=== PATIENT | female | born 1965 | race African-American/Black ===

== ENCOUNTER 2018-04-10 21:41 | Emergency (ER) | payer SELFPAY ==
[2018-04-10] MEDS ORDERED: Ketorolac Tromethamine 60 MG/2 ML VIAL ONE (23:00)
--- NOTE | 2018-04-10 23:06 | RAD ---
RIGHT SHOULDER THREE VIEWS: History: Fall. Right arm injury. FINDINGS: Acromioclavicular and glenohumeral alignment are maintained. Moderate osteophytosis. No acute fractur e, dislocation, or aggressive osseous erosions. IMPRESSION: Osteoarthritis right shoulder. No acute osseous abnormalities are demonstrated. POS: [facility]
== END 2018-04-10 23:46 | disposition home or self-care (01) ==
LOC: ERS 21:41
DX: M75.01 Adhesive capsulitis of right shoulder (principal); J45.909 Unspecified asthma, uncomplicated; I10 Essential (primary) hypertension; F41.9 Anxiety disorder, unspecified
CPT/HCPCS: 96372; J1885

== ENCOUNTER 2018-11-27 11:58 | Emergency (ER) | payer SELFPAY | END 2018-11-27 12:41 | disposition home or self-care (01) | LOC: ERS 11:58 | DX: J01.90 Acute sinusitis, unspecified (principal); J45.909 Unspecified asthma, uncomplicated; I10 Essential (primary) hypertension; F41.9 Anxiety disorder, unspecified; Z79.899 Other long term (current) drug therapy | CPT/HCPCS: 99283 ==

== ENCOUNTER 2019-03-01 15:05 | Emergency (ER) | payer SELFPAY | END 2019-03-01 15:43 | disposition home or self-care (01) | LOC: ERS 15:05 | DX: J34.89 Other specified disorders of nose and nasal sinuses (principal); J45.909 Unspecified asthma, uncomplicated; I10 Essential (primary) hypertension; F41.9 Anxiety disorder, unspecified; Z79.899 Other long term (current) drug therapy | CPT/HCPCS: 99281 ==